=== PATIENT | female | born 1995 | race Caucasian/White ===

== ENCOUNTER → 2019-01-05 | Outpatient (CLI) | payer BC, SELFPAY ==
[2016-07-06 10:11] VITALS: BP 103/63
--- NOTE | 2019-01-06 09:49 | KCIC ---
Pelvic ultrasound History: Dyspareunia, acute pelvic pain Comparison: None. Findings: Multiple transabdominal sonographic images of the pelvis are submitted. Uterus measured 9.2 x 5.8 x 3.7 cm. Endometrium measured 0.6 cm. Right ovary measured 4.5 x 2.2 x 1.8 cm. Left ovary measured 2.4 x 2.2 x 1.7 cm. There is normal low resistance vascularity of the bilateral ovaries. There is trace nonspecific free fluid in the pelvis. Impression: 1. Other than trace nonspecific dependent free fluid in the pelvis, no other abnormality is demonstrated. Electronically signed by: Nicolás Mcdowell MD (01/05/2019 4:15 PM) [id number]
== END | disposition home or self-care (01) ==
LOC: KCIC US 13:50
PROVIDERS: ATTEND Obstetrics & Gynecology
DX: N94.10 Unspecified dyspareunia (principal); R10.2 Pelvic and perineal pain
CPT/HCPCS: 76856